=== PATIENT | female | born 1980 | race Caucasian/White ===

== ENCOUNTER 2022-06-15 22:03 | Emergency (ER) | payer MEDICARE ==
[~2022-06-15] VITALS: Ht 167.6 cm; Wt 108.9 kg
== END 2022-06-16 01:45 | disposition home or self-care (01) ==
LOC: FSED 22:10
DX: O20.9 Hemorrhage in early pregnancy, unspecified (principal); O24.911 Unspecified diabetes mellitus in pregnancy, first trimester
CPT/HCPCS: 36415; 76817; 81003; 81025; 84702; 99283